=== PATIENT | male | born 1940 | race Caucasian/White ===

== ENCOUNTER 2017-03-31 11:57 | Emergency (ER) | payer OTHER, BC ==
[~2017-03-31] VITALS: Ht 195.6 cm; Wt 101.3 kg
[2017-03-31 14:21] VITALS: BP 128/84
== END 2017-03-31 14:21 | disposition home or self-care (01) ==
LOC: ED 11:57
DX: R04.0 Epistaxis (principal); I48.91 Unspecified atrial fibrillation; M54.30 Sciatica, unspecified side

== ENCOUNTER 2017-04-02 09:05 | Emergency (ER) | payer OTHER, BC ==
[~2017-04-02] VITALS: Ht 195.6 cm; Wt 98.9 kg
[2017-04-02 09:14] VITALS: BP 127/79
== END 2017-04-02 10:28 | disposition home or self-care (01) ==
LOC: ED 09:05
DX: R04.0 Epistaxis (principal)